=== PATIENT | male | born 1955 | race Caucasian/White ===

== ENCOUNTER 2017-12-05 05:39 | Inpatient (IN) | payer MEDICAID ==
[2017-12-05] MEDS ORDERED: LR 1,000 ML IV ONE (06:14)
[2017-12-05] MEDS ORDERED: LIDOCAINE 1% 2 ML INJ ID PRN (06:14)
[2017-12-05] MEDS ORDERED: BUPIVACAINE/EPI 0.5% 30 ML SDV ONE (07:05)
[2017-12-05] MEDS ORDERED: cefOXitin SODIUM 2 GM in STERILE WATER INJ 21 ML IV ONE (07:28)
[2017-12-05] MEDS ORDERED: MIDAZOLAM 2 MG/2 ML VIAL IVP ONE (07:29)
--- NOTE | 2017-12-05 07:29 | PDHPUP ---
History & Physical Update H&P update statement: This history and physical update is based on an assessment of the patient which was completed after admission or registration (within 24 hours), but prior to the surgery/procedure. H&P update: no change in patient's condition since H&P completed
[2017-12-05] MEDS ORDERED: fentaNYL 100 MCG/2 ML INJ ONE ×2 (07:36→11:30)
[2017-12-05] MEDS ORDERED: LIDOCAINE 2% 5 ML SDV ONE (07:37)
[2017-12-05] MEDS ORDERED: PROPOFOL 200 MG/20 ML VIAL ONE (07:37)
[2017-12-05] MEDS ORDERED: ROCURONIUM 50 MG/5 ML VIAL ONE (07:37)
--- NOTE | 2017-12-05 07:42 | PDANEPAE ---
ANE History of Present Illness 62 year old male for robotic assisted radical prostatectomy. ANE Past Medical History - Cardiovascular History Hx Hypertension: Yes Hx Arrhythmias: No Hx Chest Pain: No Hx Coronary Artery / Peripheral Vascular Disease: No Hx CHF / Valvular Disease: No Hx Palpitations: No - Pulmonary History Hx COPD: No Hx Asthma/Reactive Airway Disease: No Hx Recent Upper Respiratory Infection: No Hx Oxygen in Use at Home: No Hx Sleep Apnea: No Sleep Apnea Screening Result - Last Documented: Positive - Neurologic History Hx Cerebrovascular Accident: No Hx Seizures: No Hx Dementia: No Neurologic History Comment: tia many years ago - Endocrine History Hx Diabetes: No Hypothyroid: No Hyperthyroid: No Obesity: no - Renal History Hx Renal Disorders: No - Liver History Hx Hepatic Disorders: No - Neurological & Psychiatric Hx Hx Neurological and Psychiatric Disorders: No - Cancer History Hx Cancer: Yes Cancer History Comment: prostate - Congenital Disorder History Hx Congenital Disorders: No - GI History Hx Gastrointestinal Disorders: No - Other Health History Other Health History: plaque psoriasis - Chronic Pain History Chronic Pain: No - Surgical History Prior Surgeries: R hip replacement ANE Review of Systems Review of Systems: - Exercise capacity Exercise capacity: >=4 METS METS (RN): 5 METS ANE Patient History - Allergies Allergies/Adverse Reactions: No Known Allergies Allergy (Verified 12/04/17 14:16) - Home Medications Home medications: home medication list seen and reviewed Home Medications: Aspirin [Aspirin 81mg (OTC)] 03/29/13 [Last Taken 11/28/17] Amlodipine Besylate 12/04/17 [Last Taken 12/05/17 05:00] Losartan Potassium 12/04/17 [Last Taken 12/05/17 05:00] - NPO status NPO Status: no food or drink >8 hours NPO Since - Liquids (Date): 12/04/17 NPO Since - Liquids (Time): 20:30 NPO Since - Solids (Date): 12/04/17 NPO Since - Solids (Time): 08:00 - Anes Hx Anes Hx: no prior problems - Smoking Hx Smoking Status: Former smoker Marijuana use: No - Family Anes Hx Family Anes Hx: neg - N/A Family Hx Anesthesia Complications: none ANE Labs/Vital Signs - Vital Signs Vital Signs: reviewed preoperatively; see RN documention for details Blood Pressure: 143/90 Heart Rate: 67 Respiratory Rate: 16 O2 Sat (%): 93 Height: 172.72 cm Weight: 70.307 kg ANE Physical Exam - Airway Neck exam: FROM Mallampati Score: Class 1 Mouth image: 1 - chipped - Pulmonary Pulmonary: no respiratory distress - Cardiovascular Cardiovascular: regular rate and rhythym - ASA Status ASA Status: III ANE Anesthesia Plan Anesthesia Plan: general endotracheal anesthesia Total IV Anesthesia: No Urgent/Emergent Case: Miguel copeland completed preop but documented later for safe timely pt care
[2017-12-05] MEDS ORDERED: DEXAMETHASONE 4 MG/ML VIAL ONE (08:10)
[2017-12-05] MEDS ORDERED: PHENYLEPHRINE HCL 100 MCG/ML SYR ONE (08:10)
[2017-12-05] MEDS ORDERED: ONDANSETRON 4 MG/2 ML VIAL ONE (08:10)
[2017-12-05] MEDS ORDERED: THROMBIN(HUM PLAS)/FIBRINOG/CA 5 ML VIAL TP ONE (09:31)
[2017-12-05] MEDS ORDERED: SUGAMMADEX SODIUM 200 MG/2 ML VIAL IVP ONE (10:48)
[2017-12-05] MEDS ORDERED: HYDROmorphONE/DILAUDID 2 MG/ML INJ ONE (10:56)
[2017-12-05] MEDS ORDERED: NALOXONE HCL 0.4 MG/ML INJ IVP PRN ×2 (11:02→11:26)
[2017-12-05] MEDS ORDERED: ONDANSETRON 4 MG/2 ML VIAL IVP PRN ×2 (11:02→11:26)
[2017-12-05] MEDS ORDERED: OXYCODONE/APAP 5/325 TAB PO PRN (11:02)
[2017-12-05] MEDS ORDERED: PHENYLEPHRINE HCL 100 MCG/ML SYR IVP PRN (11:02)
[2017-12-05] MEDS ORDERED: LR 500 ML IV PRN (11:02)
[2017-12-05] MEDS ORDERED: epHEDrine SULFATE 10 MG/ML SYR IVP PRN (11:02)
--- NOTE | 2017-12-05 11:24 | POSTOPPROG ---
Post Op Note Date of Operation: 12/05/17 Surgeon: Charli Edge (# [id number]) Anesthesia: GET(General Endotracheal) Pre-op Diagnosis: Prostate Cancer Post-op Diagnosis: Prostate Cancer Procedure: Robotically-assisted lap. radical prostatectomy + bilateral PLND Findings: See op note Inf/Abcess present in the surg proc area at time of surgery?: No EBL: 50-100 (100 cc) Complications: None Drains: Nelson Hopper (10 Flat CHRISTINA) Specimen(s): 1. Bladder neck margin 2. Prostate + SV's 3. Right & left pelvic lymph node packages
[2017-12-05] MEDS ORDERED: PROMETHAZINE HCL 25 MG/ML INJ IVP PRN (11:26)
[2017-12-05] MEDS ORDERED: LIDOCAINE 2% JELLY 5 ML TUBE TP PRN (11:26)
[2017-12-05] MEDS ORDERED: morphINE PCA 30 MG/30 ML PCA IV PRN (11:26)
[2017-12-05] MEDS ORDERED: HYDROmorphONE/DILAUDID 1 MG/ML INJ ONE ×3 (11:30→16:26)
[2017-12-05] MEDS: fentaNYL 100 MCG/2 ML INJ IVP PRN ×4 (11:32→12:08)
[2017-12-05] MEDS: HYDROmorphONE/DILAUDID 1 MG/ML INJ IVP PRN ×7 (11:32→16:29)
[2017-12-05 12:10] LABS: PLATELET COUNT 188 10^3/uL (150-400)
--- NOTE | 2017-12-05 12:31 | GOP ---
[f rep st] OPERATIVE REPORT DATE OF OPERATION: 12/05/2017 SURGEON: Charli Edge MD CASH CHECKER: Margarita Hinojosa CFA. ANESTHESIA: General endotracheal. PREOPERATIVE DIAGNOSIS: Prostate adenocarcinoma. POSTOPERATIVE DIAGNOSIS: Prostate adenocarcinoma. PROCEDURES PERFORMED: Robotically-assisted laparoscopic radical prostatectomy and bilateral pelvic lymphadenectomy. FINDINGS: Grossly localized prostate cancer. SPECIMENS: 1. Posterior bladder neck margin. 2. Prostate with seminal vesicles. 1. Right and left pelvic lymph node packages. ESTIMATED BLOOD LOSS: Approximately 100 cc. INDICATIONS: This gentleman was recently diagnosed with clinically localized prostate adenocarcinoma and has opted for radical prostatectomy as definitive therapy. The indications for the procedures as well as potential risks and complications, were discussed with the patient preoperatively. He appeared to understand, his questions were answered, and he wished to proceed. Written informed surgical consent was thereafter obtained. DESCRIPTION OF PROCEDURE: The patient was brought to the operating room and administered general endotracheal anesthesia. He was carefully placed in the low lithotomy position on the operating room table with Emery stirrups. The abdomen and genitalia were sterilely prepped and draped in standard fashion utilizing Ioban. An 18-Georgian Rogers catheter was placed sterilely on the field to bag drainage. Intraabdominal access was obtained in the midline, just above the umbilicus, with a Veress needle. The abdomen was insufflated to approximately 15 mmHg pressure, which was the pressure maintained throughout a majority of the case. This incision was extended slightly in order to allow for placement of a 12 mm trocar. Proper intraabdominal access was confirmed at this point. I then marked out my remaining port sites which were as follows: An 8 mm robotic port in the left lower quadrant approximately 2 cm below the umbilicus and 12 cm lateral to the midline, an 8 mm robotic port in the right lower quadrant 2 cm below the umbilicus and 7.5 cm lateral to the midline, a third 8 mm robotic port placed approximately 8 cm lateral to the right lower quadrant robotic port and nearly in the same transverse line as the umbilicus, and a 12 mm laparoscopic health information assistant port placed in the left upper quadrant along the lateral edge of the rectus muscle. All these ports were placed under direct vision without complication. The patient was then placed in approximately 27 degree Trendelenburg position. The robot was docked between the patient's legs. The appropriate robotic arms were connected to the respective ports. I then left the patient's bedside and entered the surgeon's robotic console. I began the robotic portion of the procedure by carefully mobilizing the left colon off the lateral abdominal wall in order to gain further exposure to the prerectal space. I then made an incision through the posterior peritoneum transversely across the midline, approximately 1.5 cm above the rectum, with monopolar scissors. Gentle spreading motion was used to carefully develop this dissection through the peritoneum in order to identify the location of seminal vesicles and vas deferens posteriorly. These structures were carefully dissected free from the surrounding tissue gently with electrocautery and gentle blunt and sharp dissection. The tips to the seminal vesicles were ligated with Hem-o-catina clips for hemostatic purposes. The vas deferens were transected with monopolar scissors approximately 3 cm proximal to their insertion at the base of the prostate. After the seminal vesicles and ejaculatory ducts were dissected free, a transverse incision was made in the midline through Denonvilliers fascia with monopolar scissors just below the base of the prostate. Then a gentle spreading motion was used to carefully separate the prostate anteriorly from the rectum posteriorly. This dissection was carried bluntly as far towards the prostatic apex as possible. This completed the posterior dissection. Hemostasis was present at this location. I then turned my attention to the anterior dissection. An incision was made through the anterior peritoneum, high along the anterior abdominal wall, just lateral to the obliterated umbilical ligaments bilaterally. This incision through the anterior peritoneum was carried back toward the vas deferens. A gentle spreading motion was then used to develop the lateral pelvic spaces. The obliterated umbilical ligaments were then ligated with bipolar cautery and divided with scissors high along the anterior abdominal wall. These incisions through the ligaments were then joined by incising the anterior peritoneum between them with monopolar scissors. This allowed entrance into the retropubic space of Retzius. I then was able identify the prostate and bladder. The endopelvic fascia was incised bilaterally lateral to the prostate. This incision through the endopelvic fascia was carried from the prostatic apex to the base and the levator ani muscles were carefully teased off the prostate bilaterally with gentle blunt dissection. The dorsal vein complex was ligated with 2 separate 0 Vicryl stick tie sutures while staying above the urethra and distal to the prostatic apex. The bladder neck dissection was performed with monopolar scissors dissection. Care was taken to preserve as much of the bladder neck fibers as possible while not compromising the prostate margin at this location. I carried my dissection along the midline posteriorly and then laterally. The urethra was transected in the midline. The dissection was carried posteriorly until the previously dissected seminal vesicles and ejaculatory ducts were identified. They were pulled up anteriorly. On the left side of the prostate, no nerve-sparing procedure was performed due to the extent of cancer on this side as well as the presence of [place] 3 + 4 disease. He also had a significant sized hypoechoic nodule seen on preoperative transrectal ultrasound at the left apex. The dissection on this side was carried somewhat widely for these reasons. The prostate pedicle on the left side was ligated with a series of Hem-o-catina clips and divided with scissors. The posterior dissection was completed gently with a combination of monopolar scissors and gentle blunt dissection to mobilize the rectum completely off the prostate and move it out of harm's way. On the right side of his prostate, an intrafascial nerve-sparing procedure was performed with cold scissors dissection. Once this was completed, the prostatic pedicle on the right side was ligated with a series of Hem-o-catina clips and divided with scissors. The remaining lateral attachments between the prostate and endopelvic fascia were then divided sharply with scissors. I then performed the apical dissection with sharp monopolar scissors dissection. As much urethral length was spared as possible while taking care not to compromise the margin of the prostatic dissection at this location. Once the urethra was transected, the rectourethralis muscle was divided with monopolar scissors. Dissection of the prostate was completely free at this point. It was placed in the upper abdomen to be later retrieved in a specimen bag. It should be mentioned that there was no obvious extraprostatic extension of cancer noted grossly. The pelvis was then carefully inspected. The dorsal vein complex was hemostatic. Rectum was intact. The right neurovascular bundle appeared to be intact while the left one had been sacrificed with the dissection as noted above. The posterior plate was then reconstructed using a running 3-0 Vicryl V-Loc suture that approximated the vesicovisceral fascia along the posterior bladder to the rectourethralis muscle at the level of the urethral stump. The urethrovesical anastomosis was then completed with a double -armed running 3-0 Monocryl suture in a [id number] approximating fashion. Once this anastomosis was completed, a new 18-Georgian Rogers catheter was placed in the bladder and 20 cc of sterile water was placed in the balloon. The catheter irrigated manually and no clots were retrieved. The urine return was clear. There was some slight extravasation from the right side of the anastomosis laterally at about the 3 o'clock position. After temporarily removing the indwelling Rogers catheter, a single 3-0 Monocryl stitch was used to approximate the defect in this location and there was minimal anastamotic leakage of fluid with irrigation of the replaced catheter thereafter. Bilateral pelvic lymphadenectomy was then performed using the following limits of dissection: The lateral bladder wall medially, the external iliac vein laterally, the bifurcation of the common iliac vein superiorly, Coopers ligament inferiorly, and the obturator nerve posteriorly. The lymph node package was carefully dissected from the surrounding tissue and multiple Hem-o- catina clips were used to ligate perforating lymphatics and vasculature as necessary. Each lymph node package was sent separately as a permanent specimen. No obvious adenopathy was appreciated on either side. After completing the adenopathy on each side, the iliac vessels and obturator nerves were noted to be intact and hemostasis was present. It should also be mentioned that just before beginning the urethrovesical anastomosis, there was some slight redundant tissue just posterior to the bladder neck at the 6 o' clock position. This was carefully dissected free with scissors dissection and submitted as a bladder neck margin for permanent histologic examination. After completing pelvic lymphadenectomy, the intraabdominal pressure was temporarily decreased to 5 mmHg and hemostasis was present at all the operative sites. Nonetheless, a total of 5 cc of Evicel was placed at the different operative sites, namely overlying the dorsal vein complex and the pelvic lymphadenectomy sites. The prostate was then retrieved in a 10 mm specimen bag. A 10 flat Nelson-Hopper drain was placed in the pelvis and brought out through the left lower quadrant 8 mm robotic port site. This drain was ultimately secured to the skin with a 2-0 silk suture and connected to bulb suction. This completed the robotic portion of the procedure and then I returned to the patient's bedside. The rectus fascia at the location of the 12 mm health information assistant port was reapproximated with an 0 Vicryl suture utilizing the fascial closure device. This completed the laparoscopic portion of the procedure. The patient's bed was flattened at this point. The supraumbilical midline incision was extended slightly in the midline with scissors and electrocautery in order to allow for delivery of the specimen bag. The anterior rectus fascia at this location was reapproximated with running 0 Vicryl suture. The patient was noted to have a small umbilical hernia, and I attempted to close this as well with an 0 Vicryl suture by reapproximating the rectus fascia around it. All the wounds were then irrigated thoroughly with sterile water. Hemostasis was present subcutaneously at all the incision sites. A total of 30 cc of 0.5% Marcaine with epinephrine was used for local anesthetic. The skin edges were then reapproximated with running 4-0 Monocryl suture in a subcuticular fashion, followed by the application of Dermabond. The new Rogers catheter was maintained on bag drainage. The patient was then awakened, extubated, transferred to his bed, then taken to the recovery room. He tolerated the procedure well overall. COMPLICATIONS: None. DISPOSITION: He was transferred to the recovery room in stable condition. He will be admitted for postoperative care. /[id number]/MODL MTDD
--- NOTE | 2017-12-05 17:26 | POSTANESTH ---
Post Anesthetic Evaluation Cardiovascular Status: Normal, Stable, Similar to Pre-Op Cond Respiratory Status: Normal, Stable, Similar to Pre-op Cond. Level of Consciousness/Mental Status: Can Participate in Eval, Alert and Oriented Pain Control: Adequate, Prn Tx Ordered Nausea/Vomiting Control: Adequate, Prn Tx Ordered Complications Possibly Related to Anesthesia: None Noted
[2017-12-05] MEDS: D5W 1/2 NS 1,000 ML IV SCH (18:00)
[2017-12-05] MEDS: cefOXitin SODIUM 2 GM in STERILE WATER INJ 21 ML IV SCH (18:41)
[2017-12-06] MEDS: D5W 1/2 NS 1,000 ML IV SCH (02:17)
[2017-12-06] MEDS: cefOXitin SODIUM 2 GM in STERILE WATER INJ 21 ML IV SCH ×2 (02:18→13:29)
--- NOTE | 2017-12-06 10:14 | SOAPPROG ---
SOAP Progress Note Assessment/Plan: Assessment: POD 1 s/p robotic radical prostatectomy + bilateral PLND - doing well. Plan: 1. Advance diet. 2. Ambulate. 3. Transition to oral pain meds. 4. Hopeful discharge later today. Subjective: Complains of some periumbilical pain w/ movement, but overall doing well. Tolerated CLD, no N/V. Objective: Vital Signs Temp Pulse Resp BP Pulse Ox 37.1 C 65 16 96/63 L 94 12/06/17 08:56 12/06/17 08:56 12/06/17 08:56 12/06/17 08:56 12/06/17 08:56 Laboratory Results 12/06/17 05:43 12/06/17 05:43 12/05/17 12/06/17 12/07/17 05:59 05:59 05:59 Intake Total 3600 Output Total 2973 60 Balance 627 -60 Physical Exam - Physical Exam General Appearance: WD/WN, alert, no apparent distress Abdomen: soft, other (mild supraumbilical incisional tenderness; incisions c/d/i ) Male Genitalia: other (urine clear via Rogers) Extremities: non-tender, normal inspection Neuro/Psych: alert, normal mood/affect, oriented x 3 ICD10 Worksheet Patient Problems: Problems Problem Status Onset Prostate cancer Acute - ICD10 Problem Qualifiers (1) Prostate cancer
[2017-12-06] MEDS ORDERED: KETOROLAC 30 MG/1 ML SDV IVP ONE (10:16)
[2017-12-06] MEDS ORDERED: HYDROCODONE/APAP 5/325 TAB PO PRN (11:30)
[2017-12-06 13:11] VITALS: BP 131/77; PULSE 74; RESP 17; TEMP 98.6; O2SAT 89
[2017-12-06] MEDS ORDERED: KETOROLAC 15 MG/1 ML SDV IVP SCH (16:30)
--- NOTE | 2017-12-06 22:52 | GDS ---
[f rep st] DISCHARGE SUMMARY PREOPERATIVE DIAGNOSIS: Prostate cancer. POSTOPERATIVE DIAGNOSIS: Prostate cancer. HOSPITAL COURSE: This is a pleasant 62-year-old man, who presented to our office and was found to lazar ve prostate cancer. After a full discussion of the options, he elected to undergo robotically assist ed laparoscopic radical prostatectomy with bilateral pelvic lymphadenectomy. He underwent this proce dure without difficulty. He is being discharged home in good condition with his Rogers catheter in pl [address]. He is to follow up in our office in 10 days for catheter removal. /[id number]/MODL
== END 2017-12-06 16:03 | disposition home or self-care (01) | DRG 708 ==
LOC: F3N 05:39 → F1N 17:44
PROVIDERS: ADMIT Specialist; ATTEND Specialist
PROC: 07BC4ZZ Excision of Pelvis Lymphatic, Percutaneous Endoscopic Approach (ICD-10-PCS; principal; 2017-12-05 07:15)
PROC: 0VT34ZZ Resection of Bilateral Seminal Vesicles, Percutaneous Endoscopic Approach (ICD-10-PCS; principal; 2017-12-05 07:15)
PROC: 8E0W4CZ Robotic Assisted Procedure of Trunk Region, Percutaneous Endoscopic Approach (ICD-10-PCS; principal; 2017-12-05 07:15)
PROC: 0VT04ZZ Resection of Prostate, Percutaneous Endoscopic Approach (ICD-10-PCS; principal; 2017-12-05 07:15)
DX: C61 Malignant neoplasm of prostate (principal); J45.909 Unspecified asthma, uncomplicated; K21.9 Gastro-esophageal reflux disease without esophagitis; I10 Essential (primary) hypertension; Z96.641 Presence of right artificial hip joint
CPT/HCPCS: J0694; J1100; J1170; J1885; J2250; J2270; J2370; J2405; J2704; J3010

== ENCOUNTER 2017-12-11 10:32 | Emergency (ER) | payer MEDICAID ==
[2017-12-11 10:40] VITALS: BP 143/80; PULSE 87; RESP 18; TEMP 97.9; O2SAT 96
--- NOTE | 2017-12-11 10:48 | EDPHY ---
H & P Stated Complaint: prostatectomy thurs/redness at prior iv site r arm Time Seen by Provider: 12/11/17 10:46 HPI/ROS: HPI: This is a 62-year-old male presents with Chief Complaint: prostatectomy thurs/redness at prior iv site r arm Location: right forearm Quality: redness Duration: 6 days Signs and Symptoms: No bleeding, no radiation, no numbness, no weakness, no tingling, no incontinence, no decreased range of motion, + swelling, no pain, no fever, no drainage Timing: Constant Severity: Mild Context: Patient had a prostatectomy by Dr. Edge and spent the night in the hospital. He was discharged Saturday morning. Upon arrival home, he noticed some pinkness to the area around where his IV site was located. There has been mild swelling in the area but no worsening of the redness and denies warmth/tenderness/paresthesias/decreased range of motion/drainage. He has a follow-up appointment with Dr. Edge in 30 min and wanted to have his right forearm evaluated. Right-hand dominant. He has not tried warm compresses or taken NSAIDs for comfort. Modifying Factors: None Comment: ROS: see HPI Constitutional: No fever, no chills, no weight loss Eyes: No blurred vision Respiratory: No shortness of breath, no cough Cardiovascular: No chest pain Gastrointestinal: No nausea, no vomiting no diarrhea Genitourinary: No dysuria Extremities: No myalgias Neurologic: No weakness, no numbness Skin: No rashes Hematologic: No bruising, no bleeding MEDICAL/SURGICAL/SOCIAL HISTORY: Medical history: Hypertension. Surgical history: prostatectomy/r hip surg Social history: Retired CONSTITUTIONAL: awake and alert, no obvious distress HEENT: Atraumatic and normocephalic, PERRL, EOMI. Tympanic membranes clear. Oropharynx clear, no exudate and moist pink mucosa. Airway patent. No lymphadenopathy. No meningismus. Cardiovascular: Normal S1/S2, regular rate, regular rhythm, without murmur rub or gallop. PULMONARY/CHEST: Symmetrical and nontender. Clear to auscultation bilaterally. Good air movement. No accessory muscle usage. ABDOMEN: Soft, nondistended, nontender, no rebound, no guarding, no peritoneal signs, no masses or organomegaly. No CVAT. EXTREMITIES: 2/2 pulses, strength 5/5, 1.5 x 2 cm pink mildly indurated area on both volar aspect of right forearm inferior to the antecubital fossa; no palpable cord; no fluctuance; no drainage. no deformities, no clubbing, no cyanosis or edema. NEUROLOGICAL: no focal neuro deficits. GCS 15. SKIN: Warm and dry, no erythema. no rash. Good capillary refill. Source: Patient Exam Limitations: No limitations - Personal History Current Tetanus/Diphtheria Vaccine: Unsure - Medical/Surgical History Hx Asthma: No Hx Chronic Respiratory Disease: No Hx Diabetes: No Hx Cardiac Disease: No Hx Renal Disease: No Hx Cirrhosis: No Hx Alcoholism: No Hx HIV/AIDS: No Hx Splenectomy or Spleen Trauma: No Other PMH: prostatectomy/r hip surg - Social History Smoking Status: Former smoker Constitutional: Initial Vital Signs Temperature (C) 36.6 C 12/11/17 10:38 Heart Rate 87 12/11/17 10:38 Respiratory Rate 18 12/11/17 10:38 Blood Pressure 143/80 H 12/11/17 10:38 O2 Sat (%) 96 12/11/17 10:38 O2 Delivery Mode Room Air Allergies/Adverse Reactions: No Known Allergies Allergy (Verified 12/11/17 10:37) Home Medications: Medication Instructions Recorded Losartan Potassium [Cozaar 50 mg 50 mg PO DAILY 12/05/17 (*)] amLODIPine BESYLATE [Norvasc 10 mg 10 mg PO DAILY 12/05/17 (*)] Ciprofloxacin [Cipro] 500 mg PO BID #12 tab 12/06/17 Hydrocodone/APAP 5/325 [[place] 1 - 2 tab PO Q6 PRN #20 tab 12/06/17 5/325 (*)] Aspirin [Aspirin 81mg (*)] 81 mg PO DAILY #30 tab 12/11/17 Medical Decision Making - Diagnostics Imaging Results: Imaging Impressions Extremity Venous Study 12/11/17 10:55 Impression: 1. Right forearm superficial thrombophlebitis in the right cephalic vein. 2. No deep venous thrombosis in the right arm. Findings and recommendations discussed with Emergency Department physician, Lexis Costa PA-C at 1139 hour, 12/11/2017. Final report concurs with initial preliminary interpretation. ED Course/Re-evaluation: localized mildly indurated area; no antibiotics indicated. RUE US ordered per patient request but doubt thrombosis skin marker used to robel borders. No signs of neurovascular compromise/tenting of skin/compartment syndrome/ extremities and joints examined above and below area of concern and are neurovascularly intact/cellulitis. 1120: Went to room to reassessed patient he had left a directly after the ultrasound without receiving the results, plan of care or discharge instructions. I suspect he left and went to his urologist appointment at 11:30 a.m. 1145: Called by radiologist who notes a superficial thrombosis in the cephalic vein that does not extend. Advised to start baby aspirin, warm compresses, PCP follow up This patient was seen under the supervision of my secondary supervising physician. I evaluated care for this patient independently. Differential Diagnosis: Differential diagnosis includes but is not limited to suppurative thrombophlebitis, superficial thrombophlebitis, localized induration, cellulitis , deep venous thrombosis. Departure - Departure Disposition: Home, Routine, Self-Care Clinical Impression: Superficial thrombophlebitis of right upper extremity Condition: Good Instructions: Superficial Thrombophlebitis (ED) Additional Instructions: You have a superficial thrombosis in your cephalic vein but no signs of santo infection. Antibiotics are not indicated at this time. Please start baby aspirin daily. Please apply warm compresses to the area several times per day. Please monitor the redness and if it extends past the skin marker edges; return to the emergency room for evaluation. Follow-up with your primary care provider in 1-2 weeks. Referrals: Charli Edge MD [Medical Doctor] - 12/11/17 11:30 am [facility],. [Clinic] - As per Instructions Prescriptions: Aspirin [Aspirin 81mg (*)] 81 mg PO DAILY #30 tab
== END 2017-12-11 11:28 | disposition home or self-care (01) ==
DX: I80.8 Phlebitis and thrombophlebitis of other sites (principal); Z79.82 Long term (current) use of aspirin; Z87.891 Personal history of nicotine dependence